=== PATIENT | male | born 1965 | race Asian ===

== ENCOUNTER 2019-03-09 17:26 | Inpatient (IN) | payer MEDICARE ==
[~2019-03-09] VITALS: Ht 170.2 cm; Wt 51.3 kg
[2019-03-09] MEDS ORDERED: ZOLPIDEM TARTRATE 10 MG TABLET PO PRN (17:45)
[2019-03-09] MEDS ORDERED: HALOPERIDOL 5 MG TABLET PO PRN (17:45)
[2019-03-09] MEDS ORDERED: LORazepam 2 MG TABLET PO PRN (17:45)
[2019-03-09 18:20] VITALS: BP 108/76
[2019-03-10 06:50] VITALS: BP 113/76
[2019-03-10 08:06] VITALS: BP 114/82
[2019-03-10 08:13] LABS: BASOPHILS % (AUTO) 0.4 % (0.0-2.0); EOSINOPHILS % (AUTO) 0.9 % (1.0-6.0); HEMATOCRIT 37.9 % (41-53); HEMOGLOBIN 12.8 g/dL (13.5-17.5); LYMPHOCYTES # (AUTO) 1.7 K/uL (1.0-4.8); LYMPHOCYTES % (AUTO) 28.2 % (22.0-44.0); MEAN CORPUSCULAR HEMOGLOBIN 29.2 pg (26.0-34.0); MEAN CORPUSCULAR HGB CONC 33.9 G/dL (31.0-37.0); MEAN CORPUSCULAR VOLUME 86 fL (80-100); MONOCYTES # (AUTO) 0.4 K/uL (0.1-1.0); NEUTROPHILS # (AUTO) 3.8 K/uL (1.8-7.7); NEUTROPHILS % (AUTO) 63.5 % (40.0-70.0); PLATELET COUNT (AUTO) 229 K/uL (150-450); RED CELL DISTRIBUTION WIDTH 14.1 % (11.5-14.5)
[2019-03-10 08:48] LABS: HEMOGLOBIN A1C 5.3 % (4.5-6.2)
[2019-03-10 09:12] LABS: ALANINE AMINOTRANSFERASE 15 U/L (12-78); ALBUMIN 3.4 g/dL (3.4-5.0); ALKALINE PHOSPHATASE 52 U/L (46-116); ANION GAP 6 mmol/L (8-16); ASPARTATE AMINOTRANSFERASE 16 U/L (15-37); BILIRUBIN,TOTAL 0.6 mg/dL (0.1-1.0); CALCIUM, TOTAL 9.4 mg/dL (8.8-10.5); CARBON DIOXIDE 30 mmol/L (22-29); CHLORIDE 104 mmol/L (98-107); CHOL/HDL RATIO 2.8 (4.2-7.3); CHOLESTEROL 180 mg/dL (131-200); CREATININE 1.13 mg/dL (0.60-1.30); FREE T4 (FREE THYROXINE) 1.47 ng/dL (0.76-1.46); GLOMERULAR FILTR. RATE CALC > 60 mL/min (>60); GLUCOSE,RANDOM 125 mg/dL (70-110); HDL CHOLESTEROL 64 mg/dL (40-60); LDL CHOL (CALC.) 95 mg/dL (0-130); POTASSIUM 3.1 mmol/L (3.5-5.1); SODIUM SERUM 140 mmol/L (136-145); THYROID STIMULATING HORMONE 3.78 uIU/mL (0.36-3.74); TOTAL PROTEIN, SERUM 7.7 g/dL (6.4-8.2); TRIGLYCERIDES 107 mg/dL (15-150); UREA NITROGEN, BLOOD 24 mg/dL (7-18)
[2019-03-10] MEDS ORDERED: POTASSIUM CHLORIDE 20 MEQ ER TABLET PO ONE (09:45)
[2019-03-10] MEDS ORDERED: ONDANSETRON HCL 4 MG TABLET PO PRN (12:15)
[2019-03-10] MEDS ORDERED: ACETAMINOPHEN 325 MG TABLET PO PRN (12:15)
[2019-03-10] MEDS ORDERED: BENZOCAINE/MENTHOL LOZENGE MM PRN (12:15)
[2019-03-10] MEDS ORDERED: CloNIDine HCL 0.1 MG TABLET PO PRN (12:15)
[2019-03-10] MEDS ORDERED: OMEPRAZOLE 20 MG CAPSULE PO PRN (12:15)
[2019-03-10] MEDS ORDERED: DOCUSATE SODIUM 100 MG CAPSULE PO PRN (12:15)
[2019-03-10] MEDS ORDERED: MAGNESIUM HYDROXIDE SUSPENSION 30 ML UDCUP PO PRN (12:15)
[2019-03-10] MEDS ORDERED: BACITRACIN 28.4 GM OINTMENT TP PRN (12:15)
[2019-03-10] MEDS ORDERED: MAG HYDROX/AL HYDROX/SIMETH ES 30 ML SUSPENSION UDCUP PO PRN (12:15)
[2019-03-10] MEDS ORDERED: LOPERAMIDE HCL 2 MG CAPSULE PO PRN (12:15)
[2019-03-10] MEDS ORDERED: ALBUTEROL SULFATE HFA 90 MCG/PUFF 8 GM INHALER IH PRN (12:15)
[2019-03-10] MEDS ORDERED: IBUPROFEN 600 MG TABLET PO PRN (12:15)
[2019-03-10] MEDS ORDERED: PETROLATUM,WHITE 28 GM JELLY TP PRN (12:15)
[2019-03-10 16:32] VITALS: BP 110/66
[2019-03-11 01:15] VITALS: BP 110/72
[2019-03-11 08:15] VITALS: BP 111/90
[2019-03-11 08:20] LABS: FREE T4 (FREE THYROXINE) 1.25 ng/dL (0.76-1.46); THYROID STIMULATING HORMONE 2.21 uIU/mL (0.36-3.74)
[2019-03-11 12:07] VITALS: BP 127/80
[2019-03-11 16:06] VITALS: BP 116/89
[2019-03-12 01:33] VITALS: BP 112/71
[2019-03-12 08:38] VITALS: BP 107/67
[2019-03-12 16:03] VITALS: BP 114/77
[2019-03-13 05:56] VITALS: BP 130/81
[2019-03-13 08:20] VITALS: BP 108/71
[2019-03-14 01:43] VITALS: BP 123/85
[2019-03-14 08:19] VITALS: BP 119/79
[2019-03-14 08:23] LABS: MAGNESIUM 1.9 mg/dL (1.80-2.40); PHOSPHORUS 4.3 mg/dL (2.5-4.9)
[2019-03-14] MEDS: MULTIVITAMINS WITH MINERALS, THERAPEUTIC TABLET PO SCH (08:26)
[2019-03-14 16:03] VITALS: BP 113/75
[2019-03-15 06:27] VITALS: BP 113/74
[2019-03-15 08:11] VITALS: BP 118/68
[2019-03-15] MEDS: MULTIVITAMINS WITH MINERALS, THERAPEUTIC TABLET PO SCH (08:14)
[2019-03-15 16:05] VITALS: BP 107/66
[2019-03-16 03:33] VITALS: BP 102/69
[2019-03-16 08:12] VITALS: BP 116/83
[2019-03-16] MEDS: MULTIVITAMINS WITH MINERALS, THERAPEUTIC TABLET PO SCH (08:56)
[2019-03-16] MEDS ORDERED: INFLUENZA VIRUS VACCINE QVS 2019-20 (3YR+)/PF 60 MCG/0.5 ML SYRINGE IM ONE (11:45)
[2019-03-16 16:02] VITALS: BP 128/78
[2019-03-17] MEDS: MULTIVITAMINS WITH MINERALS, THERAPEUTIC TABLET PO SCH (08:12)
[2019-03-17 08:31] VITALS: BP 114/80
[2019-03-17 16:08] VITALS: BP 120/76
[2019-03-18 00:11] VITALS: BP 118/70
[2019-03-18] MEDS: MULTIVITAMINS WITH MINERALS, THERAPEUTIC TABLET PO SCH (08:34)
[2019-03-18 09:00] VITALS: BP 123/71
[2019-03-18] MEDS ORDERED: MULT-1239 PO (10:08)
== END 2019-03-18 13:30 | disposition home or self-care (01) | DRG 885 ==
LOC: B3A 17:48 → B2S 03-10 23:50
PROVIDERS: ADMIT Psychiatry & Neurology Psychiatry; ATTEND Psychiatry & Neurology Psychiatry
DX: F29 Unspecified psychosis not due to a substance or known physiological condition (principal); E87.6 Hypokalemia; E03.9 Hypothyroidism, unspecified; K59.00 Constipation, unspecified; F41.9 Anxiety disorder, unspecified; G47.00 Insomnia, unspecified; Z59.0 Homelessness
CPT/HCPCS: 83036; 83735; 84100; 84132; 84439; 84443

== ENCOUNTER 2019-06-20 12:25 | Inpatient (IN) | payer MEDICARE ==
[~2019-06-20] VITALS: Ht 177.8 cm; Wt 58.8 kg
[~2019-06-20 12:25] MED LIST: MULT-1239 PO
[2019-06-20 14:18] LABS: AMPHET/METH SCREEN,URINE NEGATIVE (NEGATIVE); BARBITURATE SCREEN, URINE NEGATIVE (NEGATIVE); BENZODIAZEPINES SCREEN,URINE NEGATIVE (NEGATIVE); CANNABINOID SCREEN,URINE NEGATIVE (NEGATIVE); COCAINE SCREEN,URINE NEGATIVE (NEGATIVE); METHADONE SCREEN, URINE NEGATIVE (NEGATIVE); OPIATE SCREEN,URINE NEGATIVE (NEGATIVE)
[2019-06-20 14:25] LABS: PHENCYCLIDINE SCREEN,URINE NEGATIVE (NEGATIVE)
[2019-06-20] MEDS ORDERED: LORazepam 2 MG TABLET PO PRN (16:30)
[2019-06-20] MEDS ORDERED: ZOLPIDEM TARTRATE 10 MG TABLET PO PRN (16:30)
[2019-06-20] MEDS ORDERED: HALOPERIDOL 5 MG TABLET PO PRN (16:30)
[2019-06-20 16:36] LABS: APPEARANCE,URINE CLEAR (CLEAR); BILIRUBIN,URINE NEGATIVE (NEGATIVE); GLUCOSE, URINE (UA) NEGATIVE (NEGATIVE); KETONES,URINE NEGATIVE (NEGATIVE); LEUKOCYTE ESTERASE ,URINE NEGATIVE (NEGATIVE); NITRATE,URINE NEGATIVE (NEGATIVE); OCCULT BLOOD,URINE LARGE (NEGATIVE); PROTEIN,URINE TRACE (NEGATIVE); UROBILINOGEN,URINE 0.2 mg/dL (<=1.0)
[2019-06-20 17:04] LABS: BACTERIA,URINE None Seen /HPF (None Seen); SQUAMOUS EPITHELIAL CELL,UR Rare /LPF (None Seen); WBC,URINE 0-2 /HPF (0-5)
[2019-06-20 20:27] VITALS: BP 117/90
[2019-06-20] MEDS ORDERED: INFLUENZA VIRUS VACCINE QVS 2019-20 (3YR+)/PF 60 MCG/0.5 ML SYRINGE IM ONE (21:45)
[2019-06-21 06:41] VITALS: BP 115/67
[2019-06-21 08:15] VITALS: BP 118/81
[2019-06-21 08:47] LABS: CHOL/HDL RATIO 2.5 (4.2-7.3); FREE T4 (FREE THYROXINE) 1.2 ng/dL (0.76-1.46); THYROID STIMULATING HORMONE 2.55 uIU/mL (0.36-3.74)
[2019-06-21] MEDS ORDERED: ACETAMINOPHEN 325 MG TABLET PO PRN (14:30)
[2019-06-21] MEDS ORDERED: GuaiFENesin/D-METHORPHAN [SUGAR-FREE] 200-20MG/10 ML SYRUP UDCUP PO PRN (14:30)
[2019-06-21] MEDS ORDERED: ONDANSETRON HCL 4 MG TABLET PO PRN (14:30)
[2019-06-21] MEDS ORDERED: CloNIDine HCL 0.1 MG TABLET PO PRN (14:30)
[2019-06-21] MEDS ORDERED: PETROLATUM,WHITE 28 GM JELLY TP PRN (14:30)
[2019-06-21] MEDS ORDERED: NICOTINE 14 MG/24 HOUR PATCH TD PRN (14:30)
[2019-06-21] MEDS ORDERED: DOCUSATE SODIUM 100 MG CAPSULE PO PRN (14:30)
[2019-06-21] MEDS ORDERED: ALBUTEROL SULFATE HFA 90 MCG/PUFF 8 GM INHALER IH PRN (14:30)
[2019-06-21] MEDS ORDERED: IBUPROFEN 400 MG TABLET PO PRN (14:30)
[2019-06-21] MEDS ORDERED: LOPERAMIDE HCL 2 MG CAPSULE PO PRN (14:30)
[2019-06-21] MEDS ORDERED: MAG HYDROX/AL HYDROX/SIMETH ES 30 ML SUSPENSION UDCUP PO PRN (14:30)
[2019-06-21] MEDS ORDERED: MAGNESIUM HYDROXIDE SUSPENSION 30 ML UDCUP PO PRN (14:30)
[2019-06-21] MEDS: OLANZapine 5 MG TABLET PO SCH (16:29)
[2019-06-22 00:29] VITALS: BP 105/69
[2019-06-22 08:44] VITALS: BP 139/73
[2019-06-22] MEDS: OLANZapine 5 MG TABLET PO SCH ×2 (09:00→16:35)
[2019-06-23] MEDS: OLANZapine 5 MG TABLET PO SCH ×2 (09:17→16:48)
[2019-06-24] MEDS: OLANZapine 5 MG TABLET PO SCH ×2 (11:06→16:49)
[2019-06-25 01:23] VITALS: BP 101/63
[2019-06-25 08:06] LABS: ALANINE AMINOTRANSFERASE 14 U/L (12-78); ALBUMIN 3.1 g/dL (3.4-5.0); ALKALINE PHOSPHATASE 64 U/L (46-116); ANION GAP 8 mmol/L (8-16); ASPARTATE AMINOTRANSFERASE 16 U/L (15-37); BILIRUBIN,TOTAL 0.2 mg/dL (0.1-1.0); CALCIUM, TOTAL 8.6 mg/dL (8.8-10.5); CARBON DIOXIDE 28 mmol/L (22-29); CHLORIDE 105 mmol/L (98-107); CREATININE 0.99 mg/dL (0.60-1.30); GLOMERULAR FILTR. RATE CALC > 60 mL/min (>60); GLUCOSE,RANDOM 92 mg/dL (70-110); PHOSPHORUS 3.6 mg/dL (2.5-4.9); POTASSIUM 4.3 mmol/L (3.5-5.1); SODIUM SERUM 141 mmol/L (136-145); UREA NITROGEN, BLOOD 14 mg/dL (7-18)
[2019-06-25] MEDS: OLANZapine 5 MG TABLET PO SCH ×2 (09:24→16:55)
[2019-06-25] MEDS: MULTIVITAMINS WITH MINERALS, THERAPEUTIC TABLET PO SCH (09:24)
[2019-06-26] MEDS: MULTIVITAMINS WITH MINERALS, THERAPEUTIC TABLET PO SCH (08:49)
[2019-06-26] MEDS: OLANZapine 5 MG TABLET PO SCH ×2 (08:49→16:44)
[2019-06-27] MEDS: OLANZapine 5 MG TABLET PO SCH ×2 (08:55→16:47)
[2019-06-27] MEDS: MULTIVITAMINS WITH MINERALS, THERAPEUTIC TABLET PO SCH (08:55)
[2019-06-28] MEDS: MULTIVITAMINS WITH MINERALS, THERAPEUTIC TABLET PO SCH (08:10)
[2019-06-28] MEDS: OLANZapine 5 MG TABLET PO SCH (08:10)
[2019-06-28] MEDS ORDERED: OLAN5TAB2 PO (11:35)
== END 2019-06-28 13:35 | disposition home or self-care (01) | DRG 885 ==
LOC: EMS 12:26 → B2X 18:19
PROVIDERS: ADMIT Psychiatry & Neurology Psychiatry; ATTEND Psychiatry & Neurology Psychiatry
DX: F20.9 Schizophrenia, unspecified (principal); E43 Unspecified severe protein-calorie malnutrition; Z68.1 Body mass index [BMI] 19.9 or less, adult; F19.90 Other psychoactive substance use, unspecified, uncomplicated; R00.0 Tachycardia, unspecified; R31.9 Hematuria, unspecified; F17.200 Nicotine dependence, unspecified, uncomplicated; Z28.21 Immunization not carried out because of patient refusal; Z72.89 Other problems related to lifestyle; Z91.14 Patient's other noncompliance with medication regimen
CPT/HCPCS: 83735; 84100; 84439; 84443

== ENCOUNTER 2024-06-17 15:03 | Inpatient (IN) | payer MEDICARE, MEDICAID ==
[~2024-06-17] VITALS: Ht 172.7 cm; Wt 56.3 kg
[~2024-06-17 15:03] MED LIST changes: -MULT-1239 PO; +OLAN5TAB52 PO
[2024-06-17 15:44] LABS: COVID AG,FIA SOURCE NASAL SWAB
[2024-06-17 16:37] LABS: SARS-COV2 (COVID) ANTIGEN,FIA Negative (Negative)
[2024-06-17 16:45] LABS: BASOPHILS % (AUTO) 0.4 % (0.0-2.0); EOSINOPHILS % (AUTO) 0.6 % (1.0-6.0); HEMATOCRIT 39.4 % (41-53); LYMPHOCYTES % (AUTO) 16.7 % (22.0-44.0); MEAN CORPUSCULAR HEMOGLOBIN 29.3 pg (26.0-34.0); MEAN CORPUSCULAR VOLUME 89 fL (80-100); MONOCYTES # (AUTO) 0.3 K/uL (0.1-1.0); MONOCYTES % (AUTO) 5.1 % (2.0-9.0); NEUTROPHILS # (AUTO) 4.5 K/uL (1.8-7.7); NEUTROPHILS % (AUTO) 77.2 % (40.0-70.0); PLATELET COUNT (AUTO) 299 K/uL (150-450); RED BLOOD CELL COUNT(AUTO) 4.43 MIL/uL (4.50-5.90); RED CELL DISTRIBUTION WIDTH 13.9 % (11.5-14.5); WHITE BLOOD COUNT (AUTO) 5.8 K/uL (4.5-11.0)
[2024-06-17 16:49] LABS: ANION GAP 5 mmol/L (8-16); CALCIUM, TOTAL 8.3 mg/dL (8.8-10.5); CARBON DIOXIDE 31 mmol/L (22-29); CHLORIDE 106 mmol/L (98-107); CREATININE 1.11 mg/dL (0.60-1.30); GLOMERULAR FILTR. RATE CALC > 60 mL/min (>60); GLUCOSE,RANDOM 96 mg/dL (70-110); POTASSIUM 3.9 mmol/L (3.5-5.1); SODIUM SERUM 142 mmol/L (136-145); UREA NITROGEN, BLOOD 18 mg/dL (7-18)
[2024-06-17 16:53] LABS: ALCOHOL, BLOOD (SERUM) < 3 mg/dL (0-10)
[2024-06-17] MEDS ORDERED: PROMETHAZINE HCL 25 MG TABLET PO PRN (21:15)
[2024-06-17] MEDS ORDERED: MAGNESIUM HYDROXIDE SUSPENSION 30 ML UDCUP PO PRN (21:15)
[2024-06-17] MEDS ORDERED: MAG HYDROX/ALUMINUM HYD/SIMETH ES 30 ML SUSPENSION UDCUP PO PRN (21:15)
[2024-06-17] MEDS: TUBERCULIN, PURIFIED PROTEIN DERIVATIVE 5 TU/0.1 ML SYRINGE ID ONE (21:15)
[2024-06-17] MEDS ORDERED: LORazepam 2 MG TABLET PO PRN (21:15)
[2024-06-17] MEDS ORDERED: PALIPERIDONE PALMITATE 234 MG/1.5 ML SYRINGE IM ONE (21:15)
[2024-06-17] MEDS ORDERED: ZOLPIDEM TARTRATE 10 MG TABLET PO PRN (21:15)
[2024-06-17] MEDS ORDERED: OLANZapine 5 MG RAPDIS TABLET PO PRN (21:15)
[2024-06-17] MEDS ORDERED: HydrOXYzine PAMOATE 50 MG CAPSULE PO PRN (21:15)
[2024-06-17] MEDS ORDERED: GuaiFENesin/D-METHORPHAN [SUGAR-FREE] 200-20MG/10 ML SYRUP UDCUP PO PRN (21:15)
[2024-06-17] MEDS ORDERED: LOPERAMIDE HCL 2 MG CAPSULE PO PRN (21:15)
[2024-06-17] MEDS ORDERED: ACETAMINOPHEN 325 MG TABLET PO PRN (21:15)
[2024-06-18 04:53] VITALS: BP 150/89; PULSE 63; RESP 18; TEMP 97.9; O2SAT 100
[2024-06-18 08:41] VITALS: BP 125/79; PULSE 66; RESP 16; TEMP 97.6; O2SAT 100
[2024-06-18] MEDS: PALIPERIDONE PALMITATE 234 MG/1.5 ML SYRINGE IM ONE (09:00)
[2024-06-18] MEDS: THIAMINE 100 MG TABLET PO SCH (09:29)
[2024-06-18] MEDS: MULTIVITAMINS WITH MINERALS, THERAPEUTIC TABLET PO SCH (09:29)
[2024-06-18] MEDS: FOLIC ACID 1 MG TABLET PO SCH (09:29)
[2024-06-18 20:32] VITALS: RESP 17
[2024-06-18] MEDS ORDERED: DIVALPROEX SODIUM 250 MG ER TABLET PO SCH (21:00)
[2024-06-18] MEDS: OLANZapine 5 MG RAPDIS TABLET PO SCH (21:50)
[2024-06-18] MEDS: DIVALPROEX SODIUM 250 MG ER TABLET PO SCH (21:50)
[2024-06-18] MEDS: MELATONIN 5 MG TABLET PO SCH (21:50)
[2024-06-19 08:30] VITALS: BP 148/93; PULSE 69; RESP 18; TEMP 97.9; O2SAT 98
[2024-06-19 20:50] VITALS: BP 123/88; PULSE 93; RESP 18; TEMP 97.7; O2SAT 99
[2024-06-19] MEDS: OLANZapine 10 MG RAPDIS TABLET PO SCH (21:19)
[2024-06-20 09:23] VITALS: BP 137/94; PULSE 83; RESP 18; TEMP 97.8; O2SAT 98
[2024-06-20 23:08] VITALS: RESP 16
[2024-06-21 08:53] VITALS: RESP 18
[2024-06-21] MEDS ORDERED: PALIPERIDONE PALMITATE 156 MG/ML SYRINGE IM ONE (09:00)
[2024-06-21 20:28] VITALS: BP 132/91; PULSE 114; RESP 20; TEMP 98; O2SAT 97
[2024-06-22] MEDS: PALIPERIDONE PALMITATE 156 MG/ML SYRINGE IM ONE (09:00)
[2024-06-22 09:38] VITALS: RESP 17
[2024-06-22 21:02] VITALS: RESP 18
[2024-06-23 12:18] VITALS: BP 121/88; PULSE 107; RESP 16; TEMP 97.6; O2SAT 100
[2024-06-23 21:49] VITALS: BP 133/90; PULSE 73; RESP 18; TEMP 98; O2SAT 97
[2024-06-24 09:00] VITALS: BP 146/81; PULSE 94; RESP 17; TEMP 97.8; O2SAT 95
[2024-06-24] MEDS ORDERED: OLAN10TA26 PO (17:52)
[2024-06-24] MEDS ORDERED: MELA5TAB40 PO (17:52)
[2024-06-24] MEDS ORDERED: DIVA-85 PO (17:52)
[2024-06-24 22:02] VITALS: RESP 18
[2024-06-25 09:35] VITALS: BP 133/79; PULSE 74; RESP 18; TEMP 98; O2SAT 100
[2024-06-25 22:52] VITALS: RESP 18
[2024-06-26 09:58] VITALS: BP 141/82; PULSE 65; RESP 17; TEMP 97.5
[2024-06-26 21:40] VITALS: RESP 18
== END 2024-06-27 14:15 | disposition home or self-care (01) | DRG 885 ==
LOC: EMS 15:03 → 3EI 06-18 03:09 → 3EX 06-18 03:45 → 3EI 06-18 16:15
PROVIDERS: ADMIT Psychiatry & Neurology Psychiatry; ATTEND Psychiatry & Neurology Psychiatry
PROC: GZHZZZZ Group Psychotherapy (ICD-10-PCS; principal; 2024-06-18)
PROC: GZ51ZZZ Individual Psychotherapy, Behavioral (ICD-10-PCS; 2024-06-18)
DX: F20.0 Paranoid schizophrenia (principal); Z20.822 Contact with and (suspected) exposure to COVID-19; Z91.199 Patient's noncompliance with other medical treatment and regimen due to unspecified reason
CPT/HCPCS: 80048; 80164; 85025; 99285; G0480